=== PATIENT | female | born 2005 | race Hispanic/Latino ===

== ENCOUNTER → 2024-05-21 | Outpatient (CLI) | payer OTHER ==
[~2024-05-21] MED LIST: GADOTERATE MEGLUMINE 10 MMOL/20 ML VIAL IV ONE
--- NOTE | 2024-05-21 12:20 | HMCIMG ---
MR PITUITARY WWO (BRAIN WWO) REASON: HYPER PROLACTINEMIA COMPARISON: None TECHNIQUE: Routine cerebral imaging protocol was performed. Additional high resolution pituitary protocol sequences were then acquired. Images were obtained before and after IV gadolinium contrast, 12 cc Clariscan IV. FINDINGS: Whole brain images show normal parenchyma. There are no focal masses. There are no focal areas of abnormal signal intensity or abnormal contrast enhancement. Ventricles and sulci appear normal as do posterior fossa and brainstem structures. Pituitary images show a well-circumscribed cyst present anteriorly and laterally in the right side of the pituitary. This measures 7 mm superior to inferior, 7 mm right to left and 7 mm anterior to posterior. There is a well-circumscribed margin. There is no associated focal masses or contrast enhancement. Appearance is most consistent with a cystic microadenoma. The MIDLINE location and the anterior location or evidence against a Rathke's cleft cyst. Epidermoid cyst is also unlikely as the lesion appears to be within rather than beside the pituitary. The pituitary appears otherwise unremarkable. There is mild deviation of the infundibulum from right to left. There are no other focal lesions. Cavernous sinuses appear normal as do suprasellar cisterns. IMPRESSION: 1. 7 x 7 x 7 mm cystic lesion present anteriorly and peripherally in the right side of the pituitary gland, cystic pituitary microadenoma favored as discussed above. 2. Otherwise normal pre and postcontrast MRI of the brain with high-resolution images of the pituitary.
== END | disposition home or self-care (01) ==
LOC: RAH 09:28
PROVIDERS: ATTEND Obstetrics & Gynecology
DX: D35.2 Benign neoplasm of pituitary gland (principal); E22.1 Hyperprolactinemia
CPT/HCPCS: 70553; A9575